=== PATIENT | male | born 1960 | race Hispanic/Latino ===

== ENCOUNTER 2017-07-22 23:40 | Emergency (ER) | payer SELFPAY ==
--- NOTE | 2017-07-23 00:39 | ED PDOC ---
HPI: Eye Injury/Pain Chief Complaint (Provider): "i feel something in my eye since sunday and its tearing like crazy" History Per: Patient History/Exam Limitations: no limitations Onset/Duration Of Symptoms: Days Current Symptoms Are (Timing): Still Present Wears Contact Lens?: No Associated Symptoms: FB Sensation, Discharge From Eye Additional Complaint(s): 56 y/o male, with no medical history as per himself, presents for evaluation of left eye discomfort and tearing. Pt reports he was walking on [employer] on Sunday, when he passed a welder gun. He reports he may have gotten a welding flash in his left eye at the time. The symptoms started several hours after, where he described it as "sand in my left eye". Since sunday he has been having a foreign body sensation with copious clear drainage. He reports blurred vision in the left eye secondary to the tearing. No purulent discharge. Does not wear contacts. No other complaints or concerns. <Alex Donohue - Last Filed: 07/23/17 01:55> <Yousuf Mcbride - Last Filed: 07/23/17 05:45> Time Seen by Provider: 07/23/17 00:05 Chief Complaint (Nursing): Eye Problem Supervising Attending Note - Supervising Attending Note The Documented history was done by the: Physician Sign Language Teacher The documented physical exam was done by the: Physician Sign Language Teacher The documented procedures were done by the: Attending Physician - Attestation: I have personally seen and examined this patient.: Yes I have fully participated in the care of the patient.: Yes I have reviewed all pertinent clinical information, including history, physical exam and plan: Yes <Yousuf Mcbride - Last Filed: 07/23/17 05:45> Past Medical History Vital Signs: Last Vital Signs Temp 97.2 F L 07/22/17 23:43 Pulse 100 H 07/22/17 23:43 Resp 16 07/22/17 23:43 BP 162/100 H 07/22/17 23:43 Pulse Ox 99 07/22/17 23:43 - Medical History PMH: HIV - Family History Family History: States: Unknown Family Hx <Alex Donohue - Last Filed: 07/23/17 01:55> Vital Signs: Last Vital Signs Temp 97.4 F L 07/23/17 02:10 Pulse 97 H 07/23/17 02:10 Resp 18 07/23/17 02:10 BP 130/82 07/23/17 02:10 Pulse Ox 98 07/23/17 02:10 <Yousuf Mcbride - Last Filed: 07/23/17 05:45> - Home Medications Home Medications: Ambulatory Orders Medication Instructions Recorded Cyclobenzaprine [Cyclobenzaprine 10 mg PO Q8 PRN #9 tab 01/27/14 HCl] Ibuprofen [Motrin] 600 mg PO Q6 PRN #20 tab 01/27/14 Naproxen [Naprosyn] 500 mg PO BID PRN #30 tab 03/19/14 Azithromycin [Zithromax Z-Jean] 250 mg PO DAILY 5 Days tab 02/10/15 Ibuprofen [Motrin] 600 mg PO Q8 PRN #6 tab 02/10/15 Guaifenesin/Pseudoephedrne HCl 1 ter PO Q12H PRN #14 ter 02/13/15 [Mucinex D 600 mg-60 mg] Promethazine DM [Phenergan DM 10 ml PO QID PRN #120 ml 02/13/15 Syrup] Compression Socks, Large 1 each MC DAILY PRN #1 each 06/28/15 [Medicool's Diasox] Acetaminophen [Acetaminophen Extra 2 tab PO Q6 PRN #24 tablet 10/12/15 Strength] Ibuprofen [Motrin] 600 mg PO Q8 PRN #21 tab 10/12/15 Promethazine/Codeine 5 ml PO Q12 PRN #100 ml 10/12/15 [Codeine/Promethazine 10 MG/5 Ml-6.25 MG/5 Ml] Pseudoephedrine [Sudafed Tab] 1 tab PO Q6 PRN #24 tab 10/12/15 Ofloxacin Ophth 0.3% [Ocuflox 2 drop OS QID #1 bottle 07/23/17 Ophth 0.3%] - Allergies Allergies/Adverse Reactions: Allergies Allergy/AdvReac Type Severity Reaction Status Date / Time No Known Allergies Allergy Verified 02/13/15 08:43 Review of Systems Constitutional: Negative for: Fever, Chills, Sweats Eyes: Positive for: Pain, Vision Change (blurred vision in left eye 2/2 to tearing ), Conjunctivae Inflammation, Eyelid Inflammation, Redness ENT: Negative for: Ear Pain, Ear Discharge Cardiovascular: Negative for: Chest Pain, Palpitations, Orthopnea Respiratory: Negative for: Cough, Shortness of Breath Gastrointestinal: Negative for: Nausea, Vomiting, Abdominal Pain, Diarrhea Genitourinary Male: Negative for: Dysuria, Frequency Skin: Negative for: Rash Neurological: Negative for: Weakness, Numbness, Incoordination, Confusion, Altered Mental Status, Headache <Alex Donohue - Last Filed: 07/23/17 01:55> Physical Exam - Reviewed Nursing Documentation Reviewed: Yes Vital Signs Reviewed: Yes - Physical Exam Appears: Positive for: Well, Non-toxic, No Acute Distress Head Exam: Positive for: ATRAUMATIC, NORMAL INSPECTION, NORMOCEPHALIC Skin: Positive for: Normal Color, Warm, Dry Eye Exam: Positive for: EOMI, PERRL, Conjunctival injection (unilateral in left eye ), Other (profuse clear drainage from left eye. Suspected stye/FB in left upper eyelid. Zavala lamp reveals abrasions at 3 o'clock and 9 o'clock. ). Negative for: Normal appearance Neck: Positive for: Normal Cardiovascular/Chest: Negative for: Regular Rate, Rhythm, Chest Non Tender, JVD , Bradycardia, Tachycardia Respiratory: Positive for: Normal Breath Sounds. Negative for: Decreased Breath Sounds, Crackles, Rales, Rhonchi Pulses-Radial (L): 2+ Pulses-Radial (R): 2+ Neurologic/Psych: Positive for: Alert, precinct captain II-XII, Oriented <Alex Donohue - Last Filed: 07/23/17 01:55> - ECG O2 Sat by Pulse Oximetry: 99 - Progress ED Course And Treament: DD: Foreign body, corneal abrasion, stye Rule out metallic foreign body CT orbits irrigation -s/p irrigation, CT results reviewed, no metal foreign body. Re-evaluation Time: 01:48 Condition: Re-examined, Improved <Alex Donohue - Last Filed: 07/23/17 01:55> Disposition - Patient ED Disposition Is Patient to be Admitted: No - Disposition Disposition: Routine/Home Disposition Time: 01:55 <Alex Donohue - Last Filed: 07/23/17 01:55> <Yousuf Mcbride - Last Filed: 07/23/17 05:45> - Clinical Impression Clinical Impression: Corneal abrasion - Disposition Referrals: Seven Woodward MD [Staff Provider] - Condition: STABLE Additional Instructions: take eye drops as prescribed any changes in vision or worsening of symptoms return to ED follow up with eye doctor Prescriptions: Ofloxacin Ophth 0.3% [Ocuflox Ophth 0.3%] 2 drop OS QID #1 bottle Instructions: Corneal Abrasion Forms: [facility] ([place])
--- NOTE | 2017-07-23 01:10 | CT ---
EXAM: CT Orbits Without Intravenous Contrast CLINICAL HISTORY: 56 years old, male; Pain; Eye pain; Left; Additional info: R/O retained ocular metallic foreign body TECHNIQUE: Axial computed tomography images of the orbits without intravenous contrast. All CT scans at this facility use one or more dose reduction techniques, viz.: automated exposure control; ma/kV adjustment per patient size (including targeted exams where dose is matched to indication; i.e. head); or iterative reconstruction technique. Coronal and sagittal reformatted images were created and reviewed. COMPARISON: CT SINUS W/O IV CONT 2010-10-31 11:34 FINDINGS: Orbits: Postsurgical changes of left globe. Increased density of left globe. Sinuses: Scattered minimal to mild mucosal thickening. No air-fluid levels. Mastoid air cells: No mastoid effusion. Bones/joints: Chronic nasal bone fractures. No acute fracture. Mild bony hypertrophy of left maxillary sinus. Soft tissues: Unremarkable. Dental: Few periapical lucencies compatible with dental disease. IMPRESSION: 1. Increased density of left globe. Clinical correlation is needed. 2. Incidental/non-acute findings are described above.
[2017-07-23 02:12] VITALS: BP 130/82; PULSE 97; RESP 18; TEMP 97.4; O2SAT 98
== END 2017-07-23 02:12 | disposition home or self-care (01) ==
LOC: H.ER 23:40
DX: S05.02XA Injury of conjunctiva and corneal abrasion without foreign body, left eye, initial encounter (principal); Y92.89 Other specified places as the place of occurrence of the external cause

== ENCOUNTER 2018-07-14 07:04 | Emergency (ER) | payer SELFPAY ==
[2018-07-14 07:18] VITALS: BMI 22.4
[2018-07-14 07:19] VITALS: BP 158/88; PULSE 71; RESP 17; TEMP 97.9; O2SAT 99
--- NOTE | 2018-07-14 07:34 | ED PDOC ---
HPI: Back Time Seen by Provider: 07/14/18 07:24 History Per: Patient Onset/Duration Of Symptoms: Other (Few months) Current Symptoms Are (Timing): Still Present Quality Of Discomfort: Aching Severity: Moderate Additional Complaint(s): Left sided back and axillary pain x 3 months. Worse on inspiration. Denies cough or SOB. Denies chest pain or fever. H/o smoking Past Medical History Vital Signs: Last Vital Signs Temp 97.9 F 07/14/18 07:18 Pulse 71 07/14/18 07:18 Resp 17 07/14/18 07:18 BP 158/88 H 07/14/18 07:18 Pulse Ox 99 07/14/18 07:18 - Medical History PMH: HIV - Family History Family History: States: Unknown Family Hx - Home Medications Home Medications: Ambulatory Orders Medication Instructions Recorded Cyclobenzaprine [Cyclobenzaprine 10 mg PO Q8 PRN #9 tab 01/27/14 HCl] Ibuprofen [Motrin] 600 mg PO Q6 PRN #20 tab 01/27/14 Naproxen [Naprosyn] 500 mg PO BID PRN #30 tab 03/19/14 Azithromycin [Zithromax Z-Jean] 250 mg PO DAILY 5 Days tab 02/10/15 Ibuprofen [Motrin] 600 mg PO Q8 PRN #6 tab 02/10/15 Guaifenesin/Pseudoephedrne HCl 1 ter PO Q12H PRN #14 ter 02/13/15 [Mucinex D 600 mg-60 mg] Promethazine DM [Phenergan DM 10 ml PO QID PRN #120 ml 02/13/15 Syrup] Compression Socks, Large 1 each MC DAILY PRN #1 each 06/28/15 [Medicool's Diasox] Acetaminophen [Acetaminophen Extra 2 tab PO Q6 PRN #24 tablet 10/12/15 Strength] Ibuprofen [Motrin] 600 mg PO Q8 PRN #21 tab 10/12/15 Promethazine/Codeine 5 ml PO Q12 PRN #100 ml 10/12/15 [Codeine/Promethazine 10 MG/5 Ml-6.25 MG/5 Ml] Pseudoephedrine [Sudafed Tab] 1 tab PO Q6 PRN #24 tab 10/12/15 Ofloxacin Ophth 0.3% [Ocuflox 2 drop OS QID #1 bottle 07/23/17 Ophth 0.3%] Cyclobenzaprine [Cyclobenzaprine 10 mg PO Q8 #10 tab 07/14/18 HCl] Naproxen [Naprosyn] 500 mg PO Q12H #20 tab 07/14/18 - Allergies Allergies/Adverse Reactions: Allergies Allergy/AdvReac Type Severity Reaction Status Date / Time No Known Allergies Allergy Verified 02/13/15 08:43 Review of Systems ROS Statement: Except As Marked, All Systems Reviewed And Found Negative Constitutional: Negative for: Fever Cardiovascular: Negative for: Chest Pain Respiratory: Negative for: Cough, Shortness of Breath Musculoskeletal: Positive for: Back Pain Physical Exam - Reviewed Nursing Documentation Reviewed: Yes Vital Signs Reviewed: Yes - Physical Exam Appears: Positive for: Non-toxic, No Acute Distress Head Exam: Positive for: ATRAUMATIC, NORMAL INSPECTION, NORMOCEPHALIC Skin: Positive for: Normal Color, Warm, DRY Eye Exam: Positive for: EOMI, Normal appearance, PERRL ENT: Positive for: Normal ENT Inspection Neck: Positive for: Normal, Painless ROM Cardiovascular/Chest: Positive for: Regular Rate, Rhythm Respiratory: Positive for: CNT, Normal Breath Sounds Gastrointestinal/Abdominal: Positive for: Normal Exam, Soft Back: Positive for: Normal Inspection. Negative for: Vertebral Tenderness, Muscle Spasm Extremity: Positive for: Normal ROM Neurological/Psych: Positive for: Awake, Alert, Normal Tone - ECG O2 Sat by Pulse Oximetry: 99 Disposition - Clinical Impression Clinical Impression: Intercostal neuritis - Patient ED Disposition Is Patient to be Admitted: No Counseled Patient/Family Regarding: Studies Performed, Diagnosis, Need For Followup, Rx Given - Disposition Referrals: FAMILY PROVIDER,NO [Primary Care Provider] - [facility] [Outside] Disposition: Routine/Home Disposition Time: 07:42 Condition: FAIR Prescriptions: Cyclobenzaprine [Cyclobenzaprine HCl] 10 mg PO Q8 #10 tab Naproxen [Naprosyn] 500 mg PO Q12H #20 tab Instructions: Muscle Strain
--- NOTE | 2018-07-14 16:54 | RAD ---
Date of service: 07/14/2018 HISTORY: Back pain COMPARISON: Comparison 07/01/2015 TECHNIQUE: Chest PA and lateral views FINDINGS: LUNGS: No acute infiltrates.Mild hyperinflation with flattened diaphragms and slight increased retrosternal airspace. PLEURA: No significant pleural effusion identified. No pneumothorax apparent. CARDIOVASCULAR: No aortic atherosclerotic calcification present. Normal cardiac size. No pulmonary vascular congestion. OSSEOUS STRUCTURES: Minor chronic anterior wedge deformities of 2 or 3 mid to lower thoracic vertebral body segments. Mild multilevel degenerative spondylosis of the thoracic spine VISUALIZED UPPER ABDOMEN: Normal. OTHER FINDINGS: None. IMPRESSION: Findings suggest underlying COPD. No active disease.
== END 2018-07-14 07:55 | disposition home or self-care (01) ==
LOC: SUPCPDRO 07:04 → H.ER 07:04
DX: G58.0 Intercostal neuropathy (principal)